=== PATIENT | male | born 1935 | race Caucasian/White ===

== ENCOUNTER 2021-07-20 12:56 | Emergency (ER) | payer OTHER ==
[~2021-07-20 12:56] MED LIST: AMLODIPINE BESY10 MG PO; FLONASE 0.05% N16 GM; GABAPENTIN800 MG PO; GLIPIZIDE10 MG PO; HYDROCHLOROTHIA25 MG PO; IRBESARTAN300 MG PO; JANUVIA100 MG PO; MAGNESIUM400 M2 PO; MECLIZINE HCL25 MG PO; METOPROLOL SUCC25 MG PO; NITROGLYCERIN0.4 MG SL; PRADAXA150 MG PO; PRAVASTATIN SOD80 MG PO
[2021-07-20 14:26] LABS: HEMOGLOBIN 14.4 gm/dl (14.0-17.5); RED BLOOD COUNT 5.02 M/UL (4.20-5.50); WHITE BLOOD COUNT 10.3 K/UL (4.5-11.0)
[2021-07-20 14:46] LABS: BUN/CREATININE RATIO 15 (0-10)
== END 2021-07-20 15:28 | disposition home or self-care (01) ==
LOC: ER1 12:56
PROVIDERS: Emergency Medicine
DX: R41.82 Altered mental status, unspecified (principal); E11.9 Type 2 diabetes mellitus without complications
CPT/HCPCS: 70450; 80053; 85025; 99285